=== PATIENT | male | born 1950 | race Caucasian/White ===

== ENCOUNTER → 2020-04-06 | Outpatient (CLI) | payer MEDICARE | END | disposition home or self-care (01) | LOC: LABWHC1 14:57 | PROVIDERS: ATTEND Internal Medicine Geriatric Medicine | DX: Z53.9 Procedure and treatment not carried out, unspecified reason (principal) ==

== ENCOUNTER → 2020-04-06 | Outpatient (CLI) | payer MEDICARE ==
[2020-04-06 15:56] LABS: Basophils % (A) 1 %; Eosinophils # (A) 0.1 k/uL (0-0.7); Eosinophils % (A) 3 %; HCT 46.7 % (39.0-53.0); HGB 15.3 gm/dL (13.0-17.5); Lymphocytes # (A) 1.2 k/uL (1.0-4.8); Lymphocytes % (A) 32 %; MCH 33.9 pg (25.0-35.0); MCHC 32.6 g/dL (31.0-37.0); MCV 103.8 fL (80.0-100.0); Macrocytosis Slight; Mean Platelet Volume 9.5; Monocytes # (A) 0.2 k/uL (0-1.0); Monocytes % (A) 6 %; Neutrophils # (A) 2.2 k/uL (1.3-7.7); Neutrophils % (A) 57 %; Platelet Count 134 k/uL (150-450); RDW 13.6 % (11.5-15.5); WBC 3.8 k/uL (3.8-10.6)
[2020-04-06 16:55] LABS: ALT 35 U/L (4-49); AST 44 U/L (17-59); African American GFR (CKD) >90 (>60 ml/min/1.73 sqM); Albumin 4.6 g/dL (3.5-5.0); Alkaline Phosphatase 83 U/L (38-126); Anion Gap 4 mmol/L; Blood Urea Nitrogen 19 mg/dL (9-20); Carbon Dioxide 31 mmol/L (22-30); Chloride 102 mmol/L (98-107); Glucose 98 mg/dL (74-99); Non-African American GFR(CKD) 78 (>60 ml/min/1.73 sqM); Potassium 3.9 mmol/L (3.5-5.1); Sodium 137 mmol/L (137-145); Total Protein 7.5 g/dL (6.3-8.2)
[2020-04-06 17:01] LABS: Cholesterol 219 mg/dL (<200); Triglycerides 47 mg/dL (<150)
[2020-04-06 17:08] LABS: HDL Cholesterol 111 mg/dL (40-60); LDL Cholesterol,Calculated 99 mg/dL (0-99)
[2020-04-07 02:23] LABS: Hemoglobin A1C 5.2 % (4.0-6.0)
[2020-04-07 06:27] LABS: PSA Annual Screen 0.6 ng/mL (0.0-4.0)
== END | disposition home or self-care (01) ==
LOC: LABPAT 15:00
PROVIDERS: ATTEND Surgery
DX: Z01.818 Encounter for other preprocedural examination (principal); K43.2 Incisional hernia without obstruction or gangrene
CPT/HCPCS: 80061; 80053; 84443; 85025; 83036; G0103

== ENCOUNTER 2020-04-09 07:16 | Day surgery (SDC) | payer MEDICARE ==
[2020-04-06 08:29] VITALS: BMI 23.8
[~2020-04-09 07:16] MED LIST: DEXAMETHASONE SOD PHOSPHATE 10 MG/ML 1 ML VIAL IV ONE; HEPARIN SODIUM,PORCINE 5,000 UNIT/ML 1 ML VIAL SQ ONE; HYDROmorphone 0.5 MG/0.5 ML SYRINGE IVP PRN; LACTATED RINGERS 1,000 ML IV SCH; LIDOCAINE 1% (10MG/ML) FOR IV START INTRADERMA PRN; ONDANSETRON 4 MG/2 ML VIAL IVP ONE; SCOPOLAMINE 1.5MG/72HR PATCH TRANSDERM ONE
--- NOTE | 2020-04-09 08:35 | P.GSHP ---
History of Present Illness H&P Date: 04/09/20 Chief Complaint: Ventral hernia 69-year-old male presents today complaining of a mid upper abdominal bulge. Been there for the last year or more. Mild pain at times. Slightly increasing in size. Never goes away completely when lying supine. Past Medical History Past Medical History: GERD/Reflux, Osteoarthritis (OA) Additional Past Medical History / Comment(s): arthritis left foot and rt hand, History of Any Multi-Drug Resistant Organisms: None Reported Past Surgical History: Appendectomy, Hernia Repair Additional Past Surgical History / Comment(s): left elbow- drainage of fluid(bursitis) Past Anesthesia/Blood Transfusion Reactions: No Reported Reaction Smoking Status: Never smoker - Past Family History Sister(s) Family Medical History: Cancer Medications and Allergies Home Medications Medication Instructions Recorded Confirmed Type Cholecalciferol [Vitamin D3 (25 5,000 unit PO DAILY 04/06/20 04/09/20 History Mcg = 1000 Iu)] Cognium 1 tab PO DAILY 04/06/20 04/09/20 History Glucosamine/Chondr Glaser A Sod [Osteo 1 each PO DAILY 04/06/20 04/09/20 History Bi-Flex Caplet] [place] 3 600 mg PO DAILY 04/06/20 04/09/20 History Red Yeast Rice 600 mg PO DAILY 04/06/20 04/09/20 History Ubidecarenone [Co Q-10] 100 mg PO DAILY 04/06/20 04/09/20 History Allergies Allergy/AdvReac Type Severity Reaction Status Date / Time No Known Allergies Allergy Verified 04/09/20 08:18 Surgical - Exam Vital Signs Temp Pulse Resp BP Pulse Ox 97.9 F 80 16 166/99 98 04/09/20 07:41 04/09/20 07:41 04/09/20 07:41 04/09/20 07:41 04/09/20 07:41 Physical exam: General: Well-developed, well-nourished HEENT: Normocephalic, sclerae nonicteric Abdomen: Nontender, nondistended, incarcerated ventral hernia mildly tender fascial defect difficult to palpate Extremities: No edema Neuro: Alert and oriented Assessment and Plan (1) Ventral hernia Narrative/Plan: 69-year-old male with incarcerated ventral hernia. We'll proceed with open repair with possible mesh at this time. Risks of bleeding, infection, recurrence, bladder and bowel injury, numbness, nerve injury procedure were discussed with the patient. The patient understands and wishes to proceed. Current Visit: Yes Status: Acute Code(s): K43.9 - VENTRAL HERNIA WITHOUT OBSTRUCTION OR GANGRENE SNOMED Code(s): 931991154
[2020-04-09] MEDS ORDERED: MIDAZOLAM 2 MG/2 ML VIAL ONE (08:44)
[2020-04-09] MEDS ORDERED: PROPOFOL 10 MG/ML 20 ML VIAL IV ONE (08:44)
[2020-04-09] MEDS ORDERED: GLYCOPYRROLATE 0.2 MG/ML 2 ML VIAL ONE (08:44)
[2020-04-09] MEDS ORDERED: LIDOCAINE 1% INJ 10MG/ML (20 ML MDV) ONE (08:44)
[2020-04-09] MEDS ORDERED: NEOSTIGMINE 1 MG/ML 10 ML VIAL ONE (08:44)
[2020-04-09] MEDS ORDERED: SUCCINYLCHOLINE CHLORIDE 100 MG/5 ML SYR IV ONE (08:44)
[2020-04-09] MEDS ORDERED: ROCURONIUM 10 MG/ML (10 ML VIAL) IV ONE (08:44)
[2020-04-09] MEDS ORDERED: fentaNYL (PF) 50 MCG/ML 2 ML AMP ONE (08:44)
[2020-04-09] MEDS ORDERED: NALOXONE 0.4 MG/ML 1 ML VIAL IV PRN (09:41)
[2020-04-09] MEDS ORDERED: traMADol 50 MG TAB PO PRN (09:41)
--- NOTE | 2020-04-09 09:45 | P.OP ---
Date of Procedure: 04/09/20 Procedure(s) Performed: PREOPERATIVE DIAGNOSIS: Incarcerated ventral hernia POSTOPERATIVE DIAGNOSIS: Same PROCEDURE: Incarcerated the ventral hernia repair with mesh SURGEON: Gabe EBL: Minimal ANESTHESIA: Gen. COMPLICATIONS: None OPERATIVE PROCEDURE: Patient placed on the operating table in the supine posi tion. Abdomen was prepped and draped in usual sterile fashion. A vertical incision was then made superior to the umbilicus by approximately 3 cm. Dissection through the subcutaneous tissues took place using electrocautery. The patient had a single moderate sized fascial defect identified. This was noted to measure 2.5 x 1.5 cm. The hernia sac was reduced back into the preperitoneal space. The preperitoneal space was then carefully dissected using both blunt dissection and cautery. We were able to avoid entrance into the perineal cavity. We had adequate space now for our mesh. The 6.4 cm ventral ex mesh was placed in the preperitoneal space and sutured to the fascia using trans-fascial 0 Ethibond sutures. Following that the midline fascia was reapproximated using interrupted 0 Ethibond mattress sutures. The folding edge of the mattress suture was sutured down using 0 Ethibond sutures as well. The subcutaneous tissues were closed using 3-0 Vicryl sutures. The skin was closed using a running 4-0 Monocryl suture. Skin glue and sterile dressings were applied. DISPOSITION: Stable to recovery room
[2020-04-09 09:54] VITALS: TEMP 97.3
[2020-04-09] MEDS ORDERED: ACETAMINOPHEN TAB 325 MG TAB PO SCH (12:00)
[2020-04-09 12:52] VITALS: BP 155/92; PULSE 46; RESP 20
[2020-04-09] MEDS ORDERED: IBUPROFEN 600 MG TAB PO SCH (15:00)
== END 2020-04-09 14:00 | disposition home or self-care (01) ==
LOC: OR 07:16
PROVIDERS: ATTEND Surgery
DX: K43.6 Other and unspecified ventral hernia with obstruction, without gangrene (principal); K21.9 Gastro-esophageal reflux disease without esophagitis; M19.072 Primary osteoarthritis, left ankle and foot; M19.041 Primary osteoarthritis, right hand; Z90.49 Acquired absence of other specified parts of digestive tract; Z98.890 Other specified postprocedural states; Z87.19 Personal history of other diseases of the digestive system; Z87.39 Personal history of other diseases of the musculoskeletal system and connective tissue; Z80.9 Family history of malignant neoplasm, unspecified
CPT/HCPCS: 49561; 49568; C1781; J2250; J1644; J1100; J2710; J0690; J2405; J2001; J3010; J0330; J2704; J1170

== ENCOUNTER 2020-11-09 09:12 | Day surgery (SDC) | payer MEDICARE ==
[2020-11-08 09:29] VITALS: BMI 25.4
[~2020-11-09 09:12] MED LIST changes: -DEXAMETHASONE SOD PHOSPHATE 10 MG/ML 1 ML VIAL IV ONE; -HEPARIN SODIUM,PORCINE 5,000 UNIT/ML 1 ML VIAL SQ ONE; -HYDROmorphone 0.5 MG/0.5 ML SYRINGE IVP PRN; -LIDOCAINE 1% (10MG/ML) FOR IV START INTRADERMA PRN; -ONDANSETRON 4 MG/2 ML VIAL IVP ONE; -SCOPOLAMINE 1.5MG/72HR PATCH TRANSDERM ONE
[2020-11-09] MEDS ORDERED: LACTATED RINGERS 1,000 ML IV ONE (09:29)
[2020-11-09 09:33] VITALS: TEMP 97.8
[2020-11-09] MEDS ORDERED: LIDOCAINE 1% (10MG/ML) FOR IV START INTRADERMA ONE (09:33)
[2020-11-09] MEDS ORDERED: PROPOFOL 10 MG/ML 20 ML VIAL IV ONE (10:17)
--- NOTE | 2020-11-09 10:20 | P.GSHP ---
History of Present Illness H&P Date: 11/09/20 Chief Complaint: Colon cancer screening Patient here today for colonoscopy. Last colonoscopy 10-12 years ago. No complaints. No family history of colon cancer. Past Medical History Past Medical History: GERD/Reflux, Osteoarthritis (OA) Additional Past Medical History / Comment(s): arthritis left foot and rt hand, History of Any Multi-Drug Resistant Organisms: None Reported Past Surgical History: Appendectomy, Hernia Repair Additional Past Surgical History / Comment(s): left elbow- drainage of fluid(bursitis), COLONOSCOPY, RIGHT KNEE ARTHROSCOPIC -MENISCUS Past Anesthesia/Blood Transfusion Reactions: No Reported Reaction Smoking Status: Never smoker - Past Family History Sister(s) Family Medical History: Cancer Additional Family Medical History / Comment(s): BREAST CANCER Mother Family Medical History: Pulmonary Embolus Medications and Allergies Home Medications Medication Instructions Recorded Confirmed Type Red Yeast Rice 600 mg PO DAILY 04/06/20 11/08/20 History Ubidecarenone [Co Q-10] 100 mg PO DAILY 04/06/20 11/08/20 History Ginkgo Biloba 500 mg PO DAILY 11/08/20 11/08/20 History Glucosamine/Chondr Glaser A Sod [Osteo 1 each PO DAILY 11/08/20 11/08/20 History Bi-Flex Caplet] Sildenafil Citrate [Sildenafil] 20 - 60 mg PO DIRECTED PRN 11/08/20 11/08/20 History Allergies Allergy/AdvReac Type Severity Reaction Status Date / Time No Known Allergies Allergy Verified 04/09/20 08:18 Surgical - Exam Vital Signs Temp Pulse Resp BP Pulse Ox 97.8 F 60 18 151/78 98 11/09/20 09:31 11/09/20 09:31 11/09/20 09:31 11/09/20 09:31 11/09/20 09:31 Physical exam: General: Well-developed, well-nourished HEENT: Normocephalic, sclerae nonicteric Abdomen: Nontender, nondistended Extremities: No edema Neuro: Alert and oriented Assessment and Plan (1) Colon cancer screening Narrative/Plan: Will proceed with colonoscopy Current Visit: Yes Status: Acute Code(s): Z12.11 - ENCOUNTER FOR SCREENING FOR MALIGNANT NEOPLASM OF COLON SNOMED Code(s): 588263708
--- NOTE | 2020-11-09 10:39 | P.PCN ---
Date of Procedure: 11/09/20 Procedure(s) Performed: PREOPERATIVE DIAGNOSIS: Colon cancer screening POSTOPERATIVE DIAGNOSIS: Diverticulosis PROCEDURE: Colonoscopy ANESTHESIA: MAC SURGEON: Momo Bernal M.D. SPECIMENS: None ENDOSCOPIC PROCEDURE: The patient was placed on the endoscopy table in the left decubitus position. The Olympus colonoscope was inserted into the anus and passed under direct visualization to the base of the cecum. The appendiceal orifice was visualized. From that point the scope was slowly withdrawn inspe cting all surfaces carefully. There were no neoplastic inflammatory or polypoid lesions throughout the cecum, ascending, transverse, descending, sigmoid and rectum. There was moderate left-sided diverticulosis noted. Digital rectal examination was normal. The patient was taken to the recovery room in stable condition per anesthesia guidelines. RECOMMENDATIONS: Resume diet. Follow-up colonoscopy 10 years.
[2020-11-09 10:45] VITALS: PULSE 62; RESP 16
[2020-11-09 11:10] VITALS: BP 177/88
== END 2020-11-09 11:55 | disposition home or self-care (01) ==
LOC: ORWHC2ENDO 09:12
PROVIDERS: ATTEND Surgery
DX: Z12.11 Encounter for screening for malignant neoplasm of colon (principal); K57.30 Diverticulosis of large intestine without perforation or abscess without bleeding; K21.9 Gastro-esophageal reflux disease without esophagitis; M19.90 Unspecified osteoarthritis, unspecified site; Z80.3 Family history of malignant neoplasm of breast
CPT/HCPCS: J2704; G0121; 45378

== ENCOUNTER 2021-08-27 18:37 | Emergency (ER) | payer MEDICARE ==
[2021-08-27 18:49] VITALS: TEMP 98.2
[2021-08-27] MEDS ORDERED: ONDANSETRON 4 MG/2 ML VIAL IVP STA ×2 (18:57→21:54)
[2021-08-27] MEDS ORDERED: ASPIRIN 81 MG PO STA (18:57)
[2021-08-27] MEDS ORDERED: MORPHINE SULFATE 4 MG/ML SYRINGE IV STA (18:57)
--- NOTE | 2021-08-27 19:00 | ED ---
Back Pain HPI - General Chief Complaint: Back Pain/Injury Stated Complaint: Back Pain Time Seen by Provider: 08/27/21 18:40 Source: patient, RN notes reviewed Limitations: no limitations - History of Present Illness Initial Comments: 70-year-old male with no prior history of heart or lung disease who presents by EMS with complaints of the onset prior to admission of lower abdominal pain or radiated to his back he states is down just a little bit above a 5 right now it was more severe prior history of being in nature does get worse with certain movements. He was changing clothes at the time of it occurring. He did feel somewhat nauseated. Of note he does have a history of an appendectomy in the past she also returned about one week ago from skiing for 3 days and they'll [place]. He had no trouble at that time other than some shortness of breath at altitude while skiing. No problems since arrival until today. MD Complaint: back pain - Related Data Home Medications Medication Instructions Recorded Confirmed Red Yeast Rice 600 mg PO DAILY 04/06/20 08/27/21 Ubidecarenone [Co Q-10] 100 mg PO DAILY 04/06/20 08/27/21 Glucosamine/Chondr Glaser A Sod [Osteo 1 tab PO DAILY 11/08/20 08/27/21 Bi-Flex Caplet] Rosuvastatin Calcium [Crestor] 5 mg PO DAILY 08/27/21 08/27/21 Allergies Allergy/AdvReac Type Severity Reaction Status Date / Time No Known Allergies Allergy Verified 08/27/21 18:49 Review of Systems ROS Statement: Those systems with pertinent positive or pertinent negative responses have been documented in the HPI. ROS Other: All systems not noted in ROS Statement are negative. Past Medical History Past Medical History: GERD/Reflux, Hyperlipidemia, Osteoarthritis (OA) Additional Past Medical History / Comment(s): arthritis left foot and rt hand, History of Any Multi-Drug Resistant Organisms: None Reported Past Surgical History: Appendectomy, Hernia Repair Additional Past Surgical History / Comment(s): left elbow- drainage of fluid(bursitis), COLONOSCOPY, RIGHT KNEE ARTHROSCOPIC -MENISCUS Past Anesthesia/Blood Transfusion Reactions: No Reported Reaction Past Psychological History: No Psychological Hx Reported Smoking Status: Never smoker - Past Family History Sister(s) Family Medical History: Cancer Additional Family Medical History / Comment(s): BREAST CANCER Mother Family Medical History: Pulmonary Embolus General Exam - General Exam Comments Initial Comments: Is a well-developed well-nourished awake alert oriented 3 male Limitations: no limitations General appearance: alert, anxious Head exam: Present: atraumatic, normocephalic, normal inspection Eye exam: Present: normal appearance, PERRL, EOMI. Absent: scleral icterus, conjunctival injection, periorbital swelling ENT exam: Present: normal exam, mucous membranes moist Neck exam: Present: normal inspection, full ROM, other (No stridor daily or bruits). Absent: tenderness, meningismus, lymphadenopathy Respiratory exam: Present: normal lung sounds bilaterally. Absent: respiratory distress, wheezes, rales, rhonchi, stridor, chest wall tenderness Cardiovascular Exam: Present: normal rhythm, bradycardia, normal heart sounds. Absent: systolic murmur, diastolic murmur, rubs, gallop, clicks GI/Abdominal exam: Present: soft, normal bowel sounds. Absent: distended, tenderness, guarding, rebound, rigid, bruit, pulsatile mass Rectal exam: Present: deferred Extremities exam: Present: normal inspection, full ROM, normal capillary refill. Absent: tenderness, pedal edema, joint swelling, calf tenderness Back exam: Present: normal inspection Neurological exam: Present: alert, oriented X3, CN II-XII intact Psychiatric exam: Present: normal affect, normal mood Skin exam: Present: warm, dry, intact, normal color. Absent: rash Course Vital Signs 08/27/21 18:45 Temperature 98.2 F Pulse Rate 47 L Respiratory 18 Rate Blood Pressure 176/103 O2 Sat by Pulse 96 Oximetry - Reevaluation(s) Reevaluation #1: 08/27/21 20:03 Reevaluation patient still complains of pain in his back with a the middle of his back no abdominal pain no nausea vomiting he is noted to be hyperventilating somewhat. Vital signs. Be stable initial EKG was negative for acute findings. CAT scan range of the aorta is pending at this time. No clinical evidence however of any vascular compromise at this time. Labs are pending Reevaluation #2: 08/27/21 22:27 Transfer mode discussed with the receiving facility at this time is reasonable to travel by ground in light of the timing of scrambled any helicopter and getting one here and all the details of getting the patient shipped by air. Medical Decision Making - Medical Decision Making I did discuss the findings with patient family they have requested [facility] transfer was needed a initially discuss case with Dr. Hilario who did recommend transfer to a tertiary care facility discuss case with Dr. Pedersen in [facility] emergency department he is agreed to accept the patient transfer this is after discussion with Dr. Ballard. Patient will be placed on a Cardene drip to keep the blood pressure at approximately 110 systolic. IV labetalol has been tried. Patient is feeling improved with decreased pain other vital signs are stable. - Lab Data Result diagrams: 08/27/21 19:09 08/27/21 19:09 Lab Results 08/27/21 08/27/21 08/27/21 Range/Units 19:09 19:09 19:09 WBC 6.3 (3.8-10.6) k/uL RBC 4.49 (4.30-5.90) m/uL Hgb 15.6 (13.0-17.5) gm/dL Hct 47.0 (39.0-53.0) % MCV 104.7 H (80.0-100.0) fL MCH 34.8 (25.0-35.0) pg MCHC 33.2 (31.0-37.0) g/dL RDW 14.4 (11.5-15.5) % Plt Count 129 L (150-450) k/uL MPV 10.1 Neutrophils % 61 % Lymphocytes % 27 % Monocytes % 5 % Eosinophils % 2 % Basophils % 0 % Neutrophils # 3.9 (1.3-7.7) k/uL Lymphocytes # 1.7 (1.0-4.8) k/uL Monocytes # 0.3 (0-1.0) k/uL Eosinophils # 0.1 (0-0.7) k/uL Basophils # 0.0 (0-0.2) k/uL Macrocytosis Moderate PT 10.4 (9.0-12.0) sec INR 0.9 (<1.2) APTT 22.2 (22.0-30.0) sec D-Dimer 7.14 H (<0.60) mg/L FEU Sodium 138 (137-145) mmol/L Potassium 3.6 (3.5-5.1) mmol/L Chloride 104 (98-107) mmol/L Carbon Dioxide 23 (22-30) mmol/L Anion Gap 11 mmol/L BUN 25 H (9-20) mg/dL Creatinine 0.84 (0.66-1.25) mg/dL Est GFR (CKD-EPI)AfAm >90 (>60 ml/min/1.73 sqM) Est GFR (CKD-EPI)NonAf 88 (>60 ml/min/1.73 sqM) Glucose 100 H (74-99) mg/dL Calcium 9.5 (8.4-10.2) mg/dL Magnesium 2.0 (1.6-2.3) mg/dL Total Bilirubin 0.8 (0.2-1.3) mg/dL AST 39 (17-59) U/L ALT 29 (4-49) U/L Alkaline Phosphatase 95 (38-126) U/L Troponin I (0.000-0.034) ng/mL NT-Pro-B Natriuret Pep pg/mL Total Protein 8.1 (6.3-8.2) g/dL Albumin 4.8 (3.5-5.0) g/dL Lipase 151 (23-300) U/L 08/27/21 08/27/21 Range/Units 19:09 19:09 WBC (3.8-10.6) k/uL RBC (4.30-5.90) m/uL Hgb (13.0-17.5) gm/dL Hct (39.0-53.0) % MCV (80.0-100.0) fL MCH (25.0-35.0) pg MCHC (31.0-37.0) g/dL RDW (11.5-15.5) % Plt Count (150-450) k/uL MPV Neutrophils % % Lymphocytes % % Monocytes % % Eosinophils % % Basophils % % Neutrophils # (1.3-7.7) k/uL Lymphocytes # (1.0-4.8) k/uL Monocytes # (0-1.0) k/uL Eosinophils # (0-0.7) k/uL Basophils # (0-0.2) k/uL Macrocytosis PT (9.0-12.0) sec INR (<1.2) APTT (22.0-30.0) sec D-Dimer (<0.60) mg/L FEU Sodium (137-145) mmol/L Potassium (3.5-5.1) mmol/L Chloride (98-107) mmol/L Carbon Dioxide (22-30) mmol/L Anion Gap mmol/L BUN (9-20) mg/dL Creatinine (0.66-1.25) mg/dL Est GFR (CKD-EPI)AfAm (>60 ml/min/1.73 sqM) Est GFR (CKD-EPI)NonAf (>60 ml/min/1.73 sqM) Glucose (74-99) mg/dL Calcium (8.4-10.2) mg/dL Magnesium (1.6-2.3) mg/dL Total Bilirubin (0.2-1.3) mg/dL AST (17-59) U/L ALT (4-49) U/L Alkaline Phosphatase (38-126) U/L Troponin I <0.012 (0.000-0.034) ng/mL NT-Pro-B Natriuret Pep 238 pg/mL Total Protein (6.3-8.2) g/dL Albumin (3.5-5.0) g/dL Lipase (23-300) U/L - Radiology Data Radiology results: report reviewed (Imaging reviewed evidence of a dissection going from the ascending aorta down to the iliacs. No definitive flap seen no definitive evidence of fresh bleeding.), image reviewed Critical Care Time Critical Care Time: Yes Total Critical Care Time: 45 Critical Care Time: Critical care time including initial presentation with history physical labs x- rays discussion with paramedics upon arrival multiple reevaluation the patient multiple discussion with the patient and an with multiple physicians. Also with a most crew prior to discharge. Disposition Clinical Impression: Aortic dissection, thoracoabdominal, Mid back pain, Hypertension Disposition: OTHER INSTITUTION NOT DEFINED Condition: Serious Referrals: Lalo Woody MD [Primary Care Provider] - 1-2 days - Out of Hospital Transfer - Req. Specs Out of Hospital Transfer - Requested Specifics: Other Emergency Center
[2021-08-27 19:24] LABS: Basophils % (A) 0 %; Eosinophils # (A) 0.1 k/uL (0-0.7); Eosinophils % (A) 2 %; HGB 15.6 gm/dL (13.0-17.5); Lymphocytes # (A) 1.7 k/uL (1.0-4.8); Lymphocytes % (A) 27 %; MCH 34.8 pg (25.0-35.0); MCHC 33.2 g/dL (31.0-37.0); MCV 104.7 fL (80.0-100.0); Macrocytosis Moderate; Mean Platelet Volume 10.1; Monocytes # (A) 0.3 k/uL (0-1.0); Monocytes % (A) 5 %; Neutrophils # (A) 3.9 k/uL (1.3-7.7); Neutrophils % (A) 61 %; Platelet Count 129 k/uL (150-450); RBC 4.49 m/uL (4.30-5.90); RDW 14.4 % (11.5-15.5); WBC 6.3 k/uL (3.8-10.6)
[2021-08-27 19:31] LABS: ALT 29 U/L (4-49); AST 39 U/L (17-59); African American GFR (CKD) >90 (>60 ml/min/1.73 sqM); Albumin 4.8 g/dL (3.5-5.0); Alkaline Phosphatase 95 U/L (38-126); Anion Gap 11 mmol/L; Blood Urea Nitrogen 25 mg/dL (9-20); Calcium 9.5 mg/dL (8.4-10.2); Carbon Dioxide 23 mmol/L (22-30); Chloride 104 mmol/L (98-107); Glucose 100 mg/dL (74-99); Lipase 151 U/L (23-300); Non-African American GFR(CKD) 88 (>60 ml/min/1.73 sqM); Potassium 3.6 mmol/L (3.5-5.1); Sodium 138 mmol/L (137-145); Total Bilirubin 0.8 mg/dL (0.2-1.3); Total Protein 8.1 g/dL (6.3-8.2)
[2021-08-27 19:52] LABS: INR 0.9 (<1.2); Partial Thromboplastin Time 22.2 sec (22.0-30.0); Prothrombin Time 10.4 sec (9.0-12.0)
[2021-08-27] MEDS ORDERED: HYDROmorphone 1 MG/ML 1 ML SYRINGE IVP STA (19:57)
--- NOTE | 2021-08-27 19:58 | XR ---
EXAMINATION TYPE: XR chest 2V DATE OF EXAM: 08/27/2021 7:25 PM COMPARISON:None TECHNIQUE: XR chest 2V Frontal and lateral views of the chest. CLINICAL INDICATION:Male, 70 years old with history of Chest Pain; FINDINGS: Lungs/Pleura: There is flattening of the diaphragm with increased lucency of the lungs. No evidence o f pneumothorax, pleural effusion or focal consolidation. Pulmonary vascularity: Unremarkable. Heart/mediastinum: Cardiomediastinal silhouette is unremarkable. Musculoskeletal: No acute osseous pathology. IMPRESSION: 1. No acute cardiopulmonary disease process. 2. COPD changes.
--- NOTE | 2021-08-27 20:02 | XR ---
EXAMINATION TYPE: XR KUB DATE OF EXAM: 08/27/2021 7:25 PM INDICATION: Patient age:Male; 70 years old; Reason for study: Abdominal pain; COMPARISON: None. TECHNIQUE: One radiographic view of the abdomen was obtained. FINDINGS: The bowel gas pattern is nonspecific without dilated loops of small or large bowel. The os seous structures are intact. No abnormal calcifications are present. Fecal material and gas are demo nstrated throughout the colon and rectum. IMPRESSION: Nonspecific bowel gas pattern without radiographic evidence for acute process.
[2021-08-27] MEDS ORDERED: LORazepam 2 MG/ML INJ IV STA (20:03)
[2021-08-27] MEDS ORDERED: SODIUM CHLORIDE 0.9% 500 ML 500 ML IV STA (20:04)
[2021-08-27] MEDS ORDERED: LABETALOL 5 MG/ML VIAL MDV IVP STA ×2 (21:08→22:07)
--- NOTE | 2021-08-27 21:31 | CT ---
EXAMINATION TYPE: CT angio thor/abd pel aorta CT DLP: 1499.8 mGycm, Automated exposure control for dose reduction was used. DATE OF EXAM: 08/27/2021 9:08 PM COMPARISON: None. CLINICAL INDICATION:Male, 70 years old with history of Abdominal and back pain; , Abdominal and back pain, elevated d-dimer. TECHNIQUE: Dissection protocol: Multiple axial CT images of the chest, abdomen, and pelvis were obtai clarice prior and to the administration of IV contrast. 3-D reformats and maximum intensity projection fo rmat were performed on a separate workstation. Then the abdomen was scanned after administration of 8 0 cc of Isovue 370 IV contrast. FINDINGS: ARTERIAL VASCULATURE: The thoracic aorta is increased in caliber with mild dilation measuring 41 mm. There is dissection of the aorta extending from the ascending thoracic aorta into the bilateral commo n iliac arteries. No evidence of high density blood products are seen within the false lumen. No int imal flap is definitively identified. The origins of the great vessels, celiac axis, superior mesente daylin artery, bilateral renal arteries are patent. There is mild narrowing just past the origin of the celiac axis with at least 50% stenosis from atherosclerotic plaquing. PULMONARY ARTERIAL VASCULATURE: No evidence of pulmonary embolus. VENOUS SYSTEM: Unremarkable. Lungs/pleura: Increased bilateral lower lobe streaky atelectasis/scarring. Heart: Within normal limits. Mediastinum: No gross evidence of adenopathy. Lower Neck: No significant findings. Abdomen: Liver: Unremarkable. Gallbladder and Bile ducts: Unremarkable. Pancreas: Unremarkable. Spleen: Unremarkable. Adrenal glands: Unremarkable. Kidneys and Ureters: Unremarkable. No hydronephrosis. Stomach and Bowel: Scattered clonic diverticula are seen throughout the colon. No evidence of bowel o bstruction. Peritoneum: No evidence of pneumoperitoneum, free fluid, or adenopathy. Bladder: Unremarkable. Reproductive: Unremarkable. Abdominal wall/soft tissues: Unremarkable. Musculoskeletal: The osseous structures appear intact. Grade 1 anterolisthesis of L4 on L5 with parti al right pars interarticularis defect. Findings communicated to Dr. Elmo Mckeon MD on 08/27/2021 9:[address] Elmo Cano. IMPRESSION: 1. Aortic dissection with thrombus of the false lumen extending from the distal ascending thoracic ao rta into the bilateral common iliac arteries. There is no intimal flap identified suggesting more sub acute or chronic process. No high density blood products are seen within this false lumen after the a dministration of contrast. 2. Celiac axis focal narrowing just past the origin of at least 50% stenosis secondary to atheroscler otic plaquing. 3. Colonic diverticulosis. 4. Grade 1 anterolisthesis of L4 on L5 with right pars intra-articular defect.
[2021-08-27] MEDS ORDERED: niCARdipine 20 MG in SODIUM CHLORIDE 0.9% 192 ML IV SCH (22:30)
[2021-08-28 01:40] VITALS: BP 103/63; PULSE 58; RESP 18
== END 2021-08-27 23:00 | disposition other institution (70) ==
LOC: EC 18:37
DX: I71.03 Dissection of thoracoabdominal aorta (principal); I10 Essential (primary) hypertension; E78.5 Hyperlipidemia, unspecified; K21.9 Gastro-esophageal reflux disease without esophagitis; Z79.899 Other long term (current) drug therapy
CPT/HCPCS: 36415; 93005; 85379; 83880; 80053; 83690; 83735; 84484; 85025; 85610; 85730; 87635; 71046; 74018; 71275; 74174; 99291; 96374; 96375 ×5; 96376 ×2; J2060; J2270; J2405; J1170; Q9967

== ENCOUNTER → 2021-12-15 | Outpatient (CLI) | payer MEDICARE ==
--- NOTE | 2021-12-15 15:06 | CONS ---
CONSULTATION DATE OF SERVICE: 12/15/2021 71-year-old gentleman has been evaluated in Sleep Center for possibility of obstructive sleep apnea-hypopnea syndrome. HISTORY OF PRESENT ILLNESS SLEEP-WAKE EVALUATION: SLEEP SCHEDULE: Patient usual sleep schedule from 10 p.m. to 5:30 to 6:30 a.m. FALLING ASLEEP: No problems with falling asleep. No TV in bedroom. DURING SLEEP: The patient wakes up from sleep up to 3 times with 2 episodes of nocturia. DURING THE DAY/SLEEP WAKE EVALUATION: In the morning, the patient wakes up tired has problems with memory, concentration. No history of hypnagogic hallucinations, sleep paralysis, and cataplexy. Patient denied history of snoring. PAST MEDICAL HISTORY: Positive for recent episodes of aortic dissection type B which happened in August 27, 2021, hypertension, hyperlipidemia, episodes of atrial fibrillation documented while he was in the hospital. PAST SURGICAL HISTORY: Hernia repair. CURRENT MEDICATIONS: Amlodipine and other medications for blood pressure, patient does not remember the name, Crestor, vitamins. SOCIAL HISTORY: Negative for smoking, alcohol consumption occasional. FAMILY HISTORY: Positive for arthritis, cancer, anemia and ulcers. REVIEW OF SYSTEMS: Multiple awakenings from sleep. PHYSICAL EXAMINATION: GENERAL: gentleman without distress. BP 133/72 HR 58, RR 18, height 5 feet 5 inches, weight 162.8, body mass index 26.9, oxygen saturation at room air 95%, temperature 96.6. Oropharynx: Low position of soft palate, Mallampati 3-4. Neck 15-1/4 inches in circumference. NECK: Supple, no JVD. Thyroid is not palpable. LUNGS: Clear to percussion and to auscultation. Good air exchange. No wheezing or rhonchi. HEART: S1, S2 regular. No murmurs, gallops, or rubs. ABDOMEN: Soft and nontender. Bowel sounds are present. No organomegaly appreciated. EXTREMITIES: No clubbing or cyanosis. PAPER RULER: Awake, alert, and oriented X3. Cranial nerves 2 to 7 intact. There is no fasciculation or atrophy. noted. No focal deficits observed. IMPRESSION: 1. Multiple awakenings from sleep, low position of soft palate possible obstructive sleep apnea-hypopnea syndrome. 2. Hypertension. 3. Status post aortic dissection type B on August 27, 2021. 4. History of short episodes of episodes of atrial fibrillation documented while patient was in the hospital on campus monitor. 5. Hyperlipidemia. 6. Status post hernia repair. PLAN: 1. Home sleep apnea test for evaluation of patient breathing during sleep. 2. CPAP/BiPAP titration if sleep study confirms obstructive sleep apnea-hypopnea syndrome. 3. Preferable position during sleep on the side. 4. No driving if patient feels any sleepiness. 5. I will see patient for follow up visit to explain results of testing and following plan. Thank you very much for referring this patient for consultation. Sincerely, Андрей Breen MD, PhD, FAASM Diplomat of [place] Sleep Medicine Board of [place] [facility] [place] MMDAVINAL / APRILN: [id number] /
== END ==
LOC: SLEEP 11:14
PROVIDERS: ATTEND Internal Medicine
DX: G47.8 Other sleep disorders (principal); I10 Essential (primary) hypertension; I48.91 Unspecified atrial fibrillation; Z98.890 Other specified postprocedural states; Z87.19 Personal history of other diseases of the digestive system
CPT/HCPCS: 99211

== ENCOUNTER → 2024-06-02 | Outpatient (CLI) | payer MEDICARE ==
[2024-06-02 09:19] LABS: African American GFR (CKD) 80 (>60 ml/min/1.73 sqM); Albumin 4.4 g/dL (3.5-5.0); Anion Gap 4 mmol/L; Blood Urea Nitrogen 23 mg/dL (9-20); Calcium 9.3 mg/dL (8.4-10.2); Carbon Dioxide 29 mmol/L (22-30); Chloride 107 mmol/L (98-107); Glucose 94 mg/dL (74-99); Non-African American GFR(CKD) 70 (>60 ml/min/1.73 sqM); Phosphorus 3.5 mg/dL (2.5-4.5); Potassium 3.8 mmol/L (3.5-5.1); Sodium 140 mmol/L (137-145)
--- NOTE | 2024-06-02 10:19 | CT ---
EXAMINATION TYPE: CT angio thor/abd pel aorta CT DLP: 951.1 mGycm, Automated exposure control for dose reduction was used. DATE OF EXAM: 06/02/2024 10:06 AM COMPARISON: CTA thoracoabdominal pelvic aortic 08/27/2021. CLINICAL INDICATION:Male, 73 years old with history of I10 Primary Hypertension; I71.03 DISSECTION OF THO; [facility], h/o aortic dissection x2 years ago f/u TECHNIQUE: Dissection protocol: Multiple axial CT images of the chest, abdomen, and pelvis were obtai clarice prior and to the administration of IV contrast. 3-D reformats and maximum intensity projection fo rmat were performed on a separate workstation. Then the abdomen was scanned after administration of 1 00 cc of Isovue 370 IV contrast. FINDINGS: ARTERIAL VASCULATURE: The thoracic aorta is increased in caliber with mild dilation measuring 4.1 cm again. Previously seen aortic dissection is no longer visualized. No evidence for intramural hematoma . Minimal atherosclerotic calcification of the aorta and its branches. The origins of the great vesse ls, celiac axis, superior mesenteric artery, bilateral renal arteries are patent. 1 PULMONARY ARTERIAL VASCULATURE: No evidence of pulmonary embolus. VENOUS SYSTEM: Unremarkable. Lungs/pleura: No pleural effusion, pneumothorax, focal consolidation. Scattered regions of subsegment al atelectasis and/or scarring redemonstrated. Heart: Within normal limits. Coronary artery calcifications. No pericardial effusion. Mediastinum: No evidence of adenopathy. Lower Neck: No significant findings. Abdomen: Liver: Unremarkable. Gallbladder and Bile ducts: Unremarkable. Pancreas: Unremarkable. Spleen: Unremarkable. Adrenal glands: Unremarkable. Kidneys and Ureters: Unremarkable. No hydronephrosis. Stomach and Bowel: Scattered clonic diverticula are seen throughout the colon. No evidence of bowel o bstruction. Peritoneum: No evidence of pneumoperitoneum, free fluid, or adenopathy. Bladder: Unremarkable. Reproductive: Unremarkable. Abdominal wall/soft tissues: Unremarkable. Musculoskeletal: The osseous structures appear intact. Grade 1 anterolisthesis of L4 on L5 redemonstr ated. IMPRESSION: 1. Resolution of previously demonstrated aortic dissection. No new aortic dissection or intramural he matoma identified. Stable aneurysmal dilatation ascending thoracic aorta measuring 4.1 cm. 2. Colonic diverticulosis. [facility], , 06/02/2024 10:17 AM
== END | disposition home or self-care (01) ==
LOC: RADCTMAIN 07:59
PROVIDERS: ATTEND Thoracic Surgery (Cardiothoracic Vascular Surgery)
DX: I10 Essential (primary) hypertension (principal); I71.03 Dissection of thoracoabdominal aorta; I71.011 Dissection of aortic arch; K57.30 Diverticulosis of large intestine without perforation or abscess without bleeding
CPT/HCPCS: 80069; 71275; 36415; 74174; Q9967